=== PATIENT | female | born 1930 | race Caucasian/White ===

== ENCOUNTER 2017-04-20 12:07 | Outpatient (CLI) | payer OTHER ==
--- NOTE | 2017-04-20 15:13 | Diagnostic Imaging Report ---
Indications: Vertigo Technique: Sagittal and axial T1 weighted fast spin-echo, axial T2-weighted fat saturated fast spin echo, T2-weighted FLAIR, T2*-weighted gradient echo, and diffusion sequences of the brain were performed prior to IV gadolinium administration. Axial and coronal T1 weighted fast spin-echo was performed following IV gadolinium administration. Findings: Comparison: None Confluent T2 signal hyperintensity throughout the bilateral periventricular white matter. Multiple additional foci of similar signal change scattered throughout bilateral cerebral deep and subcortical white matter. Ventricles, cisterns, sulci are diffusely prominent. No evidence of mass or hemorrhage, other signal abnormality, mass effect, midline shift, hydrocephalus, or increased intracranial pressure. No restricted diffusion. No abnormal enhancement. Retro-odontoid soft tissues prominent, appearing to extend into and partially destroy the odontoid process, bulging the spinal canal with narrowing of the latter to 8-9 mm. No obvious cord compression results. 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 Query element of normal pressure hydrocephalus. Marked prominence of retro-odontoid soft tissues with suggestion of partial erosion of the odontoid process, mild spinal stenosis. Inflammatory arthritis, particularly rheumatoid, should be considered. If clinically indicated, consider MRI of the cervical spine for further evaluation.
== END 2017-04-20 14:07 | disposition home or self-care (01) ==
LOC: MRI 12:07
DX: R42 Dizziness and giddiness (principal); G93.89 Other specified disorders of brain; M48.00 Spinal stenosis, site unspecified; M19.90 Unspecified osteoarthritis, unspecified site
CPT/HCPCS: 70553; A9585